=== PATIENT | female | born 1955 | race Caucasian/White ===

== ENCOUNTER 2019-11-25 09:40 | Emergency (ER) | payer OTHER ==
--- NOTE | 2019-11-25 10:21 | TELE ---
HPI Do you have fever,cough or shortness of breath?: No - General Reason For Visit: COVID 19 TEST History Source: Patient Review of Systems - Review of Systems Constitutional: No: Fever Respiratory: No: Cough, Shortness of Breath *Physical Exam - Physical Exam HEENT: positive: Normal Voice - Medical Decision Making 11/25/19 10:20 64-year-old female, no significant history, requesting call with testing prior to visiting family member in a senior care. Patient has no symptoms at this time. We will proceed to [place]. Order placed. Unable to connect with patient via back line Discharge Diagnosis at time of Disposition: Encounter by telehealth for suspected COVID-19 - Referrals Follow-up Referral(s): April Nelson [Primary Care Provider] - - Patient Instructions - Discharge Disposition: HOME
== END 2019-11-25 10:21 | disposition home or self-care (01) ==
LOC: JVIRT 09:40
DX: Z03.818 Encounter for observation for suspected exposure to other biological agents ruled out (principal)
CPT/HCPCS: C9803; Q3014-GT; U0003